=== PATIENT | male | born 1965 | race Two or more races ===

== ENCOUNTER → 2017-04-29 | Outpatient (CLI) | payer OTHER ==
--- NOTE | 2017-04-29 15:04 | RADIOLOGY REPORT (SQ) ---
EXAM DESCRIPTION: CT ABD/PELVIS COMBO COMPLETED DATE/TIME: 04/29/2017 11:01 am REASON FOR STUDY: MICROSCOPIC HEMATURIA R31.29 OTHER MICROSCOPIC HEMATURIA COMPARISON: None. TECHNIQUE: CT scan of the abdomen and pelvis performed with and without intravenous contrast, and wi thout oral contrast. Contrasted imaging performed helical scanning technique and dynamic intravenous contrast injection. Images reviewed with lung, soft tissue, and bone windows. Reconstructed coronal a nd sagittal MPR images reviewed. Delayed images for evaluation of the urinary system also acquired. A ll images stored on PACS. All CT scanners at this facility use dose modulation, iterative reconstruction, and/or weight based d osing when appropriate to reduce radiation dose to as low as reasonably achievable (ALARA). [facility]: Dose Right [facility]: CareDose [facility]: Dose Right [facility]: Teradose 4D [facility]: [place] CONTRAST TYPE AND DOSE: contrast/concentration: Isovue 370.00 mg/ml; Total Contrast Delivered: 100.0 ml; Total Saline Delivered: 72.0 ml RENAL FUNCTION: Creatinine 1.2. RADIATION DOSE: CT Rad equipment meets quality standard of care and radiation dose reduction techniq ues were employed. CTDIvol: 16.2 - 18.3 mGy. DLP: 3333 mGy-cm. . LIMITATIONS: None. FINDINGS: NON-CONTRASTED IMAGING: No significant renal or bladder calcifications. No other significa nt organ calcifications. POST-CONTRASTED IMAGING: LOWER CHEST: No significant findings. No nodules or infiltrates. LIVER: Normal size. No masses. No dilated ducts. SPLEEN: Normal size. No focal lesions. PANCREAS: No masses. No significant calcifications. No adjacent inflammation or peripancreatic fluid collections. Pancreatic duct not dilated. GALLBLADDER: No identified stones by CT criteria. No inflammatory changes to suggest cholecystitis. ADRENAL GLANDS: No significant masses or asymmetry. RIGHT KIDNEY AND URETER: No solid masses. No significant calcifications. No hydronephrosis or hyd roureter. LEFT KIDNEY AND URETER: No solid masses. No significant calcifications. No hydronephrosis or hydr oureter. AORTA AND VESSELS: No aneurysm. No dissection. Renal arteries, SMA, celiac without stenosis. RETROPERITONEUM: No retroperitoneal adenopathy, hemorrhage or masses. BOWEL AND PERITONEAL CAVITY: No masses or inflammatory changes. No free fluid or peritoneal masses. APPENDIX: Normal. PELVIS: No mass. No free fluid. Normal bladder. ABDOMINAL WALL: No masses. No hernias. BONES: Irregular serpiginous sclerosis of the right and left femoral head. Smooth contour with no co llapse of the cortical surface. OTHER: No other significant finding. IMPRESSION: 1. IRREGULAR SERPIGINOUS SCLEROSIS OF THE RIGHT AND LEFT FEMORAL HEAD, SUSPICIOUS FOR BILATERAL AVASC ULAR NECROSIS. IF THERE HAS BEEN NO PRIOR EVALUATION, WOULD RECOMMEND MRI OF THE HIPS. 2. NO OTHER SIGNIFICANT OR ACUTE ABNORMALITY IN THE ABDOMEN OR PELVIS. NO ABNORMAL FINDINGS IN THE K IDNEYS, URETERS, OR BLADDER. TECHNICAL DOCUMENTATION: JOB ID: [id number] Quality ID # [id number]: Final reports with documentation of one or more dose reduction techniques (e.g., Au tomated exposure control, adjustment of the mA and/or kV according to patient size, use of iterative reconstruction technique) 2010 [employer]- All Rights Reserved Reading location - IP/workstation name: [email or web address]
== END ==
LOC: RAD 09:27
PROVIDERS: ATTEND Urology
DX: R31.29 Other microscopic hematuria (principal)
CPT/HCPCS: 74178; 82565

== ENCOUNTER → 2019-09-27 | Outpatient (CLI) | payer OTHER ==
--- NOTE | 2019-09-27 12:28 | RADIOLOGY REPORT (SQ) ---
EXAM DESCRIPTION: U/S ABDOMEN COMPLETE W/DOPPLER IMAGES COMPLETED DATE/TIME: 09/27/2019 9:17 am REASON FOR STUDY: K76.0 FATTY (CHANGE OF) LIVER, NOT ELSEWHERE CLASSIFIED K76.0 FATTY (CHANGE OF) L IVER, NOT ELSEWHERE CLASSIFIED COMPARISON: None. TECHNIQUE: Dynamic and static grayscale images acquired of the abdomen and recorded on PACS. Additio nal selected color Doppler and spectral images recorded. Note: Study does not meet criteria for complete doppler/duplex scan LIMITATIONS: None. FINDINGS: PANCREAS: No masses. The tail was poorly seen. LIVER: Increased echogenicity. No masses. LIVER VASCULATURE: Normal directional flow of the main portal vein and hepatic veins. GALLBLADDER: Not well seen. There is shadowing from the gallbladder fossa suggesting a contracted ga llbladder with stones. ULTRASOUND-DETECTED FUENTES'S SIGN: Negative. INTRAHEPATIC DUCTS AND COMMON DUCT: CBD and intrahepatic ducts normal caliber. No filling defects. INFERIOR VENA CAVA: Normal flow. AORTA: No aneurysm. RIGHT KIDNEY: Normal size, 11.3 cm. Normal echogenicity. No solid or suspicious masses. No hyd ronephrosis. No calcifications. LEFT KIDNEY: Normal size, 12.9 cm. Normal echogenicity. No solid or suspicious masses. No hydr onephrosis. No calcifications. SPLEEN: Normal size. No solid masses. PERITONEAL AND PLEURAL SPACES: No ascites or effusions. OTHER: No other significant finding. IMPRESSION: Hepatic steatosis. There appears to be a contracted gallbladder with stones. TECHNICAL DOCUMENTATION: JOB ID: [id number] 2010 [employer]- All Rights Reserved Reading location - IP/workstation name: [email or web address]
== END ==
LOC: RAD 08:14
PROVIDERS: ATTEND Physician Assistant
DX: K80.80 Other cholelithiasis without obstruction (principal); K76.0 Fatty (change of) liver, not elsewhere classified
CPT/HCPCS: 76700; 93976

== ENCOUNTER 2019-11-02 16:06 | Emergency (ER) | payer OTHER ==
[2019-11-02] MEDS ORDERED: NORMAL SALINE 1000 ML 1,000 ML IV ONE (16:18)
--- NOTE | 2019-11-02 16:19 | ER Document Report ---
ED Medical Screen (RME) - General Chief Complaint: Leg Swelling Stated Complaint: LEG SWELLING Time Seen by Provider: 11/02/19 16:11 Primary Care Provider: ELIZA GALICIA PA-C [Primary Care Provider] - Follow up as needed Information source: Patient Notes: Patient states he was advised to come here by his primary doctor after he was getting checked out and was found to have a low oxygen saturation. Patient does report cough for the past few months. Patient states that he has had some nausea vomiting last week although none today. Patient denies any fever or chest pain. Patient states he does have a history of DVT in 2012. Patient states that his primary doctor was concerned that his right lower extremity seems swollen and he wanted him to be checked for possible clot. I have greeted and performed a rapid initial assessment of this patient. A comprehensive ED assessment and evaluation of the patient, analysis of test results and completion of the medical decision making process will be conducted by additional ED providers. TRAVEL OUTSIDE OF THE [place] IN LAST 30 DAYS: No - Related Data Allergies/Adverse Reactions: No Known Allergies Allergy (Unverified 01/08/17 12:07) Past Medical History - Past Medical History Cardiac Medical History: Reports: Hx DVT Renal/ Medical History: Denies: Hx Peritoneal Dialysis Skin Medical History: Reports Hx Cellulitis Past Surgical History: Reports: Hx Orthopedic Surgery - left knee - Immunizations Hx Diphtheria, Pertussis, Tetanus Vaccination: No Physical Exam - Vital signs Vitals: Temp Pulse Resp BP Pulse Ox 98.3 F 72 20 99/82 L 94 11/02/19 16:10 11/02/19 16:10 11/02/19 16:10 11/02/19 16:10 11/02/19 16:10 - General General appearance: Appears well, Alert Notes: Swelling to bilateral lower extremities - Respiratory Respiratory status: No respiratory distress Chest status: Nontender Chest palpation: Normal Course - Vital Signs Vital signs: Temp Pulse Resp BP Pulse Ox 98.3 F 72 20 99/82 L 94 11/02/19 16:10 11/02/19 16:10 11/02/19 16:10 11/02/19 16:10 11/02/19 16:10 Doctor's Discharge - Discharge Referrals: ELIZA GALICIA PA-C [Primary Care Provider] - Follow up as needed
[2019-11-02 16:20] VITALS: BP 113/77
--- NOTE | 2019-11-02 17:03 | RADIOLOGY REPORT (SQ) ---
EXAM DESCRIPTION: CHEST SINGLE VIEW IMAGES COMPLETED DATE/TIME: 11/02/2019 4:54 pm REASON FOR STUDY: cough COMPARISON: None. EXAM PARAMETERS: NUMBER OF VIEWS: One view. TECHNIQUE: Single frontal radiographic view of the chest acquired. RADIATION DOSE: NA LIMITATIONS: None. FINDINGS: LUNGS AND PLEURA: Chronic interstitial changes. No infiltrate, effusion, or mass. MEDIASTINUM AND HILAR STRUCTURES: No masses. Contour normal. HEART AND VASCULAR STRUCTURES: Heart normal in size. Normal vasculature. BONES: No acute findings. HARDWARE: None in the chest. OTHER: No other significant finding. IMPRESSION: Chronic lung changes with no acute cardiopulmonary finding. TECHNICAL DOCUMENTATION: JOB ID: [id number] 2010 [employer]- All Rights Reserved Reading location - IP/workstation name: [email or web address]
--- NOTE | 2019-11-02 18:44 | ER Document Report ---
ED General - General Chief Complaint: Cough Stated Complaint: LEG SWELLING Time Seen by Provider: 11/02/19 16:11 Primary Care Provider: ELIZA GALICIA PA-C [PHYSICIAN [facility]] - Follow up as needed Notes: Patient is a 53-year-old white male with a past medical history of chronic thrombocytopenia who sees Dr. Torres greer, DVT many years ago in the right lower extremity who was sent by his doctor today to the emergency department for evaluation of swelling in the lower leg in the presence of a low oxygen saturation. Patient reports that while at his primary's office, Dr. Pineda, they noticed that his oxygen saturations were between 88 and 94. Patient states he is never known this to be the case in the past. He is a non-smoker. He is ex- . He states that many years ago he reports the blood clot was gone and he stopped taking what he suspects was Coumadin. He states now at the end of the day every day he has some swelling and soft lines on the lower extremities bilaterally. He states when he goes to bed at night he lies down when he wakes up in the morning the swelling is gone. He states this is a recurrent problem. He denies any pain in the lower extremities. He states that over the past day or so he is developed a slight dry cough that is infrequent. He states that at work they do regular COVID screening. He has had no known sick contacts or recent travel. No fever. No shortness of breath. No hemoptysis. TRAVEL OUTSIDE OF THE [place] IN LAST 30 DAYS: No - Related Data Allergies/Adverse Reactions: No Known Allergies Allergy (Unverified 01/08/17 12:07) Past Medical History - General Information source: Patient - Social History Smoking Status: Never Smoker Chew tobacco use (# tins/day): No Frequency of alcohol use: None Drug Abuse: None Family History: Reviewed & Not Pertinent - Past Medical History Cardiac Medical History: Reports: Hx DVT Renal/ Medical History: Denies: Hx Peritoneal Dialysis Skin Medical History: Reports Hx Cellulitis Past Surgical History: Reports: Hx Orthopedic Surgery - left knee - Immunizations Hx Diphtheria, Pertussis, Tetanus Vaccination: No Review of Systems - Review of Systems Constitutional: denies: Fever EENT: denies: Throat pain Cardiovascular: denies: Syncope Respiratory: denies: Short of breath Gastrointestinal: denies: Abdominal pain Genitourinary: denies: Pain Male Genitourinary: denies: Testicular pain Musculoskeletal: denies: Deformity Skin: denies: Change in color Hematologic/Lymphatic: denies: Easy bruising Neurological/Psychological: denies: Headaches Physical Exam - Vital signs Vitals: Temp Pulse Resp BP Pulse Ox 98.3 F 72 20 99/82 L 94 11/02/19 16:10 11/02/19 16:10 11/02/19 16:10 11/02/19 16:10 11/02/19 16:10 - General General appearance: Appears well, Alert In distress: None - HEENT Head: Normocephalic, Atraumatic Eyes: Normal Pupils: PERRL - Respiratory Respiratory status: No respiratory distress Chest status: Nontender Breath sounds: Normal Chest palpation: Normal - Cardiovascular Rhythm: Regular Heart sounds: Normal auscultation - Abdominal Inspection: Normal Distension: No distension Bowel sounds: Normal Tenderness: Nontender Organomegaly: No organomegaly - Extremities General upper extremity: Normal inspection, Nontender, Normal color, Normal ROM, Normal temperature General lower extremity: Nontender, Normal color, Normal ROM, Normal temperature, Normal weight bearing, Other - Slight sock line indentions bilaterally. No significant pitting edema or otherwise. No: Deepika's sign - Neurological Neuro grossly intact: Yes Cognition: Normal Orientation: AAOx4 - Psychological Associated symptoms: Normal affect, Normal mood - Skin Skin Temperature: Warm Skin Moisture: Dry Skin Color: Normal Course - Re-evaluation Re-evalutation: 11/02/19 21:09 Slightly low WBC, none for comparison prior here. Patient does have a history of thrombocytopenia, possible history of mild neutropenia as well. Ultrasound of the leg was negative for DVT. CT scan negative for any PE or other acute cardiopulmonary process per radiologist. There was an inadvertent documentation error of 72% on room air oxygen saturation which was incorrect. I personally repeated this myself at this time and the patient is 95% on room air. He has no other significant symptoms. He has not been tested for COVID 19. I recommended though he is asymptomatic with exception of a low O2 that we test for COVID-19. He declined stating he felt fine and did not feel like he needed to be tested at this time. He has a follow-up appointment with his primary on Tuesday. He reports they plan on referring him to cardiology. I advised they may need also to send to pulmonology. Discussed with him if symptoms present themselves are patient starts to feel worse he should return here or call his doctor immediately at which point COVID-19 testing would certainly be a high priority. He agrees with that. I advised he return here or any ER immediately with any new, persistent or worsening symptoms. He verbalized understood and agreed. - Vital Signs Vital signs: Temp Pulse Resp BP Pulse Ox 98.3 F 72 20 113/77 72 L 11/02/19 16:10 11/02/19 16:10 11/02/19 16:19 11/02/19 16:19 11/02/19 16:19 - Laboratory Result Diagrams: 11/02/19 18:25 11/02/19 18:25 Laboratory results interpreted by me: 11/02/19 11/02/19 18:25 18:25 WBC 3.3 L RBC 4.27 L MCV 101 H MCH 34.7 H Plt Count 81 L Wise % (Auto) 13.2 H Absolute Neuts (auto) 1.5 L Carbon Dioxide 32 H BUN 23 H Discharge - Discharge Clinical Impression: Dependent edema, Cough, Borderline low oxygen saturation level Condition: Stable Disposition: HOME, SELF-CARE Instructions: Edema, Peripheral ([facility]) Additional Instructions: Follow-up with your primary doctor on Tuesday as scheduled and discussed. Return here or any ER immediately with any new, persistent or worsening symptoms. Referrals: ELIZA GALICIA PA-C [PHYSICIAN [facility]] - Follow up as needed
[2019-11-02 18:55] LABS: INTERNATIONAL RATION (INR) 1.15; PROTHROMBIN TIME 14.9 SEC (11.4-15.4)
[2019-11-02 18:56] LABS: PARTIAL THROMBOPLASTIN TIME 33.1 SEC (23.5-35.8)
[2019-11-02 18:57] LABS: ABSOLUTE LYMPHOCYTES (AUTO) 1.3 10^3/uL (0.5-4.7); ABSOLUTE MONOCYTES (AUTO) 0.4 10^3/uL (0.1-1.4); ABSOLUTE NEUT (AUTO) 1.5 10^3/uL (1.7-8.2); BASOPHILS % (AUTO) 0.4 % (0-2); EOSINOPHILS % (AUTO) 0.7 % (0-6); HEMATOCRIT 42.9 % (37.9-51.0); HEMOGLOBIN 14.8 g/dL (13.5-17.0); LYMPHOCYTES % (AUTO) 38.6 % (13-45); MEAN CORPUSCULAR HEMOGLOBIN 34.7 pg (27.0-33.4); MEAN CORPUSCULAR HGB CONC 34.6 g/dL (32.0-36.0); MEAN CORPUSCULAR VOLUME 101 fl (80-97); MONOCYTES % (AUTO) 13.2 % (3-13); RED BLOOD COUNT 4.27 10^6/uL (4.35-5.55); RED CELL DISTRIBUTION WIDTH 13.9 % (11.5-14.0); SEGMENTED NEUTROPHILS % (AUTO) 47.1 % (42-78); TOTAL CELLS COUNTED % (AUTO) 100 %; WHITE BLOOD COUNT 3.3 10^3/uL (4.0-10.5)
[2019-11-02 19:08] LABS: ALBUMIN 4.2 g/dL (3.5-5.0); ALKALINE PHOSPHATASE 61 U/L (38-126); ANION GAP 6 (5-19); ASPARTATE AMINO TRANSFERASE 34 U/L (17-59); BILIRUBIN,DIRECT 0.3 mg/dL (0.0-0.4); BLOOD UREA NITROGEN 23 mg/dL (7-20); CALCIUM 9.1 mg/dL (8.4-10.2); CARBON DIOXIDE 32 mmol/L (22-30); CHLORIDE 103 mmol/L (98-107); GLUCOSE 92 mg/dL (75-110); POTASSIUM 4.1 mmol/L (3.6-5.0); TOTAL PROTEIN 7.2 g/dL (6.3-8.2)
[2019-11-02 19:37] LABS: PLATELET COUNT 81 10^3/uL (150-450)
--- NOTE | 2019-11-02 20:22 | RADIOLOGY REPORT (SQ) ---
CT CHEST ANGIOGRAPHY WITHOUT THEN WITH IV CONTRAST HISTORY: Shortness of breath. COMPARISON: None. TECHNIQUE: CT angiogram of the chest with IV contrast. 3-D MIP images were obtained in coronal and sagittal reconstructions. This exam was performed according to our departmental dose-optimization program, which includes automated exposure control, adjustment of the mA and/or kV according to patient size and/or use of iterative reconstruction technique. FINDINGS: No filling defects are identified in the pulmonary trunk, main left and right pulmonary arteries, or the segmental branches. The thyroid gland is normal. No mediastinal or hilar adenopathy. The heart size is enlarged without pericardial effusion. The thoracic aorta is normal caliber. No consolidation, pleural effusion, or pneumothorax is identified. There is atelectasis and mild scarring throughout both lungs but greatest at the right lung base. The visualized upper abdomen demonstrates no acute findings. No acute osseous findings are seen. IMPRESSION: No acute pulmonary embolism.
--- NOTE | 2019-11-02 21:10 | RADIOLOGY REPORT (SQ) ---
US LOWER EXTREMITY VEINS HISTORY: Leg pain and swelling. COMPARISON: None. TECHNIQUE: Grayscale, color Doppler, and spectral Doppler images of the right lower extremity were performed. FINDINGS: The common femoral, superficial femoral and popliteal veins are patent and compressible. Normal augmentation and color Doppler blood flow in the aforementioned veins. The visualized calf veins are also patent. Diffuse subcutaneous edema is present. IMPRESSION: No DVT in the right lower extremity.
== END 2019-11-02 21:24 | disposition home or self-care (01) ==
LOC: ER 16:06
DX: R60.0 Localized edema (principal); R05 Cough; R09.02 Hypoxemia; Z86.718 Personal history of other venous thrombosis and embolism
CPT/HCPCS: 99285; 96360; 36415; 85025; 85610; 85730; 80053; 93971; 71045; 71275; J7030

== ENCOUNTER → 2019-12-11 | Outpatient (CLI) | payer OTHER ==
--- NOTE | 2019-12-12 09:40 | XCELERA REPORT ---
[address] [address] Transthoracic Echocardiogram Report Name: LY GRAVES Age: 54 yrs Gender: Male : 1965 Patient Status: Outpatient Patient Location: Study Date: 12/11/2019 11:15 AM History: Dyspnea Height: 74 in Weight: 259 lb BSA: 2.4 m2 Procedure: A complete two-dimensional transthoracic echocardiogram was performed (2D, M-mode, spectral and color flow Doppler). The study was technically difficult with many images being suboptimal in quality. Reason For Study: SOB Previous Evaluation: No previous studies were available. Ordering Physician: AURA SANTILLAN Performed By: Serafin Chery Interpretation Summary Left ventricular systolic function is low normal. The Ejection Fraction estimate is 50-55% The right ventricle is normal in size and function. There is no mitral regurgitation noted. There is no aortic valve stenosis There is a trace amount of tricuspid regurgitation There is no pericardial effusion. MMode/2D Measurements & Calculations RVDd: 2.9 cm LVIDd: 5.9 cm FS: 36.5 % Ao root diam: 3.5 cm IVSd: 0.88 cm LVIDs: 3.7 cm EDV(Teich): 171.3 ml Ao root area: 9.7 cm2 LVPWd: 0.94 cm ESV(Teich): 59.1 ml LA dimension: 3.8 cm EF(Teich): 65.5 % Doppler Measurements & Calculations MV E max andrew: MV P1/2t max andrew: Ao V2 max: LV V1 max P.5 cm/sec 71.5 cm/sec 106.4 cm/sec 4.0 mmHg MV A max andrew: MV P1/2t: 66.8 msec Ao max PG: LV V1 max: 73.4 cm/sec MVA(P1/2t): 3.3 cm2 4.5 mmHg 99.9 cm/sec MV E/A: 0.93 MV dec slope: 313.7 cm/sec2 MV dec time: 0.23 sec PA V2 max: MV P1/2t-pr_phl: 64.4 cm/sec 66.8 msec PA max P.7 mmHg Left Ventricle The left ventricle is grossly normal size. There is borderline concentric left ventricular hypertrophy. Left ventricular systolic function is low normal. The Ejection Fraction estimate is 50-55%. Doppler measurements suggest impaired left ventricular relaxation, which is associated with grade I/IV or mild diastolic dysfunction. Regional wall motion abnormalities cannot be excluded due to limited visualization. Right Ventricle The right ventricle is normal in size and function. Atria The right atrium is normal. The left atrium is borderline dilated. Mitral Valve The mitral valve is grossly normal. There is no mitral valve stenosis. There is no mitral regurgitation noted. Aortic Valve The aortic valve opens well. The aortic valve is not well visualized secondary to technical limitations. There is no aortic valve stenosis. No aortic regurgitation is present. Tricuspid Valve The tricuspid valve is not well visualized, but is grossly normal. There is a trace amount of tricuspid regurgitation. Tricuspid regurgitation jet envelope not well defined to measure RV systolic pressure accurately. Pulmonic Valve The pulmonic valve is not well visualized. There is a trace amount of pulmonic regurgitation. Great Vessels The aortic root is normal size. The inferior vena cava appeared normal and decreased > 50% with respiration (RAP 5-10 mmHg). Effusions There is no pericardial effusion. : AURA SANTILLAN Anil
== END ==
LOC: SP 11:04
PROVIDERS: ATTEND Internal Medicine
DX: R06.02 Shortness of breath (principal); R07.9 Chest pain, unspecified
CPT/HCPCS: 93306

== ENCOUNTER → 2019-12-31 | Outpatient (CLI) | payer OTHER ==
--- NOTE | 2019-12-31 12:41 | DRAGON STRESS TEST REPORT ---
Exercise stress test Date: December 31, 2019 Referring physician: Alesia Pineda MD Performing physician: Bobby Soliz MD Indication: Chest pain Clinical history 54-year-old male with medical history significant for nicotine dependence in remission and with family history of premature coronary artery disease who presented to the office with complaints of dyspnea and fatigue. No chest pain was ruled ported. His echocardiogram showed low normal left ventricular ejection fraction (50 to 55%) and no significant valve lesion. This test was performed on 12/11/2019. Procedure The patient presented to the stress lab. The patient exercised on the treadmill according to Seth protocol for a total of 4 minutes and 49 seconds achieving a maximum heart rate of 133 bpm which was 79 % of maximum predicted of 168 bpm. The maximum workload was 7 METS. The presenting EKG showed sinus rhythm at 92 bpm. The initial blood pressure was 109/84 mmHg. upon exercise the heart rate hector to a maximum of beats per minute and the blood pressure hector to a maximum of 171/77 mmHg. The patient had appropriate increment in heart rate and blood pressure with exercise. The exercise EKG was negative for myocardial ischemia. Infrequent premature ventricular contractions were seen throughout exercise and initial part of recovery. The recovery EKG did not reveal any evidence of myocardial ischemia. The patient did not tolerate the procedure well and the test had to be stopped before achieving target heart rate as the patient reported significant dyspnea and could not persevere with the test. There was no report of chest pain. The patient's EKG and vital signs were monitored throughout the procedure. Conclusion Suboptimal exercise tolerance. Exercise EKG is negative for myocardial ischemia-did not achieve target heart rate. Significant dyspnea reported at low-level exercise Recommend pulmonary evaluation. Normal heart rate and blood pressure response to exercise. MTDD
== END ==
LOC: SP 08:47
PROVIDERS: ATTEND Internal Medicine
DX: R07.9 Chest pain, unspecified (principal); R06.00 Dyspnea, unspecified; F17.201 Nicotine dependence, unspecified, in remission; R53.83 Other fatigue
CPT/HCPCS: 93017

== ENCOUNTER → 2020-01-22 | Outpatient (CLI) | payer OTHER ==
[2020-01-22 07:58] LABS: ABSOLUTE EOSINOPHILS # (AUTO) 0.1 10^3/uL (0.0-0.6); ABSOLUTE LYMPHOCYTES (AUTO) 1.1 10^3/uL (0.5-4.7); ABSOLUTE MONOCYTES (AUTO) 0.4 10^3/uL (0.1-1.4); ABSOLUTE NEUT (AUTO) 1.4 10^3/uL (1.7-8.2); BASOPHILS % (AUTO) 0.5 % (0-2); EOSINOPHILS % (AUTO) 2.1 % (0-6); HEMATOCRIT 39.9 % (37.9-51.0); HEMOGLOBIN 14.1 g/dL (13.5-17.0); LYMPHOCYTES % (AUTO) 37.4 % (13-45); MEAN CORPUSCULAR HEMOGLOBIN 35.2 pg (27.0-33.4); MEAN CORPUSCULAR HGB CONC 35.3 g/dL (32.0-36.0); MEAN CORPUSCULAR VOLUME 100 fl (80-97); RED CELL DISTRIBUTION WIDTH 13.5 % (11.5-14.0); TOTAL CELLS COUNTED % (AUTO) 100 %
[2020-01-22 08:07] LABS: ARTERIAL BLOOD BASE EXCESS -0.1 mmol/L; ARTERIAL BLOOD H2CO3 1.29 mmol/L (1.05-1.35); ARTERIAL BLOOD HCO3 25.1 mmol/L (20-24); ARTERIAL BLOOD O2 SATURATION 94.5 % (94-98); ARTERIAL BLOOD PCO2 42.8 mmHg (35-45); ARTERIAL BLOOD PH 7.39 (7.35-7.45); ARTERIAL BLOOD PO2 73.1 mmHg (80-100); ARTERIAL BLOOD TOTAL CO2 26.4 mmol/L (23-27)
[2020-01-22 08:19] LABS: PLATELET COUNT 64 10^3/uL (150-450)
[2020-01-22 08:23] LABS: ANION GAP 8 (5-19); BLOOD UREA NITROGEN 19 mg/dL (7-20); CALCIUM 9.4 mg/dL (8.4-10.2); CARBON DIOXIDE 30 mmol/L (22-30); CHLORIDE 104 mmol/L (98-107); GLUCOSE 108 mg/dL (75-110); POTASSIUM 4.1 mmol/L (3.6-5.0)
[2020-01-22 08:33] LABS: ARTERIAL BLOOD FIO2 ROOM AIR
== END ==
LOC: OD 07:04
PROVIDERS: ATTEND Internal Medicine Pulmonary Disease
DX: R91.8 Other nonspecific abnormal finding of lung field (principal)
CPT/HCPCS: 36415; 80048; 82803; 83516; 83880; 85025; 86225; 86235; 86256